=== PATIENT | male | born 1985 | race Two or more races ===

== ENCOUNTER 2020-04-15 23:10 | Emergency (ER) | payer SELFPAY ==
[~2020-04-15] VITALS: Ht 170.2 cm; Wt 104.3 kg
[2020-04-16] MEDS ORDERED: cefTRIAXone SOD 1,000 MG VL IM ONE (04:00)
[2020-04-16] MEDS ORDERED: cefTRIAXone 1GM/50ML D5W 50 ML IV ONE (05:15)
[2020-04-16 09:46] VITALS: BP 136/81
== END 2020-04-16 09:49 | disposition short-term general hospital (02) ==
LOC: ER 23:10
DX: T79.A11A Traumatic compartment syndrome of right upper extremity, initial encounter (principal); X58.XXXA Exposure to other specified factors, initial encounter; V86.56XA Driver of dirt bike or motor/cross bike injured in nontraffic accident, initial encounter; Y93.89 Activity, other specified; Y92.9 Unspecified place or not applicable; Y99.8 Other external cause status
CPT/HCPCS: 73130; 73562; 96365; 99285; J0696